=== PATIENT | female | born 1955 | race Caucasian/White ===

== ENCOUNTER 2017-09-30 16:21 | Emergency (ER) | payer BC ==
[2017-09-30 17:18] LABS: ABS Basophils 0 10^3/ul (0-0.2); ABS Eosinophils 0.1 10^3/ul (0-0.6); ABS Lymphocytes 1.8 10^3/ul (1.0-4.8); ABS Monocytes 0.6 10^3/ul (0-0.8); ABS Nucleated RBC 0 10^3/ul; Eosinophil % 1.7 % (0-6); Hematocrit 40 % (35-47); Hemoglobin 13.6 g/dl (12.0-16.0); Lymphocyte % 32.8 % (25-47); Mean Corpuscular HGB Conc 34 g/dl (31-36); Mean Corpuscular Hemoglobin 32 pg (27-31); Mean Corpuscular Volume 94 fL (80-97); Mean Platelet Volume 8 um3 (7.4-10.4); Nucleated Red Blood Cells % 0.1; Platelet Count 247 10^3/ul (150-450); Red Blood Count 4.27 10^6/ul (4.0-5.4); Red Cell Distribution Width 13 % (10.5-15); White Blood Count 5.5 10^3/ul (3.5-10.8)
[2017-09-30 17:33] LABS: EGFR Non-African American 60.2 (>60)
--- NOTE | 2017-09-30 17:48 | RAD ---
INDICATION: Chest pain COMPARISON: October 23, 2011 TECHNIQUE: PA and lateral dual-energy views were obtained. FINDINGS: Bones/Soft Tissues: There are no acute bony findings. Cardiomediastinal: The cardiomediastinal silhouette is normal. Lungs: There are no infiltrates. Pleura: There are no pleural effusions. Other: None IMPRESSION: NORMAL CHEST.
[2017-09-30 21:58] VITALS: BP 107/70
--- NOTE | 2017-09-30 22:11 | ED ---
uGero Mendes Stephanie, scribed for Levi Magallanes MD on 09/30/17 at 1735 . HPI Chest Pain - HPI Summary HPI Summary: The pt is a 61 y/o F presenting to the ED with c/o CP that began this morning at 08:00. The pt reports having upper back pain last night around 22:00. Symptoms include radiation of the CP to the neck, and L sided arm weakness. The pt denies nausea, SOB, diaphoresis and lightheadedness. - History of Current Complaint Chief Complaint: EDChestPainROMI Time Seen by Provider: 09/30/17 16:56 Hx Obtained From: Patient Onset/Duration: Started Days Ago - 1, Still Present Timing: Intermittent Current Severity: Mild Pain Intensity: 3 Pain Scale Used: 0-10 Numeric Chest Pain Location: Diffuse Chest Pain Radiates: Yes Chest Pain Radiates To:: Arm - L, Neck Aggravating Factor(s): Nothing Alleviating Factor(s): Nothing Associated Signs and Symptoms: Positive: Back Pain - upper. 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 motons neuroma removed- 1994 Infectious Disease History: No Infectious Disease History: Denies: Traveled Outside the [place] in Last 30 Days - Family History Known Family History: Negative: Cardiac Disease - Social History Occupation: Employed Full-time Lives: With Family Alcohol Use: None Substance Use Type: Reports: None Smoking Status (MU): Never Smoked Tobacco Review of Systems Negative: Fever, Skin Diaphoresis Positive: Chest Pain Negative: Shortness Of Breath Negative: Nausea Positive: Other - neck pain Neurological: Other - Negative: lightheadedness Positive: Weakness - L arm weakness All Other Systems Reviewed And Are Negative: Yes Physical Exam - Summary Physical Exam Summary: Appearance: The patient is well-nourished in no acute distress and in no acute pain. Skin: The skin is warm and dry and skin color reflects adequate perfusion. HEENT: The head is normocephalic and atraumatic. The pupils are equal and reactive. The conjunctivae are clear and without drainage. Nares are patent and without drainage. Mouth reveals moist mucous membranes and the throat is without erythema and exudate. The external ears are intact. The ear canals are patent and without drainage. The tympanic membranes are intact. Neck: the neck is supple with full range of motion and non-tender. There are no carotid bruits. There is no neck vein distension. Respiratory: Chest is non-tender. Lungs are clear to auscultation and breath sounds are symmetrical and equal. Cardiovascular: Heart is regular rate and rhythm. There is no murmur or rub auscultated. There is no peripheral edema and pulses are symmetrical and equal. Abdomen: The abdomen is soft and non-tender. There are normal bowel sounds heard in all four quadrants and there is no organomegaly palpated. Musculoskeletal: There is no back tenderness noted. Extremities are non-tender with full range of motion. There is good capillary refill. There is no peripheral edema or calf tenderness elicited. Neurological: Patient is alert and oriented to person, place and time. The patient has symmetrical motor strength in all four extremities. Cranial nerves are grossly intact. Deep tendon reflexes are symmetrical and equal in all four extremities. Psychiatric: The patient has an appropriate affect and does not exhibit any anxiety or depression Triage Information Reviewed: Yes Vital Signs On Initial Exam: Initial Vitals Temp Pulse Resp BP Pulse Ox 96.8 F 66 16 136/76 98 09/30/17 16:34 09/30/17 16:34 09/30/17 16:34 09/30/17 16:34 09/30/17 16:34 Vital Signs Reviewed: Yes Diagnostics - Vital Signs Vital Signs Temp Pulse Resp BP Pulse Ox 09/30/17 17:06 62 16 98 09/30/17 16:34 96.8 F 66 16 136/76 98 - Laboratory Lab Results: Lab Results 09/30/17 Range/Units 17:06 WBC 5.5 (3.5-10.8) 10^3/ul RBC 4.27 (4.0-5.4) 10^6/ul Hgb 13.6 (12.0-16.0) g/dl Hct 40 (35-47) % MCV 94 (80-97) fL MCH 32 H (27-31) pg MCHC 34 (31-36) g/dl RDW 13 (10.5-15) % Plt Count 247 (150-450) 10^3/ul MPV 8 (7.4-10.4) um3 Neut % (Auto) 53.8 (38-83) % Lymph % (Auto) 32.8 (25-47) % Karnes % (Auto) 11.0 H (0-7) % Eos % (Auto) 1.7 (0-6) % Baso % (Auto) 0.7 (0-2) % Absolute Neuts (auto) 3.0 (1.5-7.7) 10^3/ul Absolute Lymphs (auto) 1.8 (1.0-4.8) 10^3/ul Absolute Monos (auto) 0.6 (0-0.8) 10^3/ul Absolute Eos (auto) 0.1 (0-0.6) 10^3/ul Absolute Basos (auto) 0 (0-0.2) 10^3/ul Absolute Nucleated RBC 0 10^3/ul Nucleated RBC % 0.1 Result Diagrams: 09/30/17 17:06 09/30/17 17:06 Lab Statement: Any lab studies that have been ordered have been reviewed, and results considered in the medical decision making process. - Radiology CXR Xray Interpretation: No Acute Changes Radiology Interpretation Completed By: Radiologist - Normal chest. - EKG 16:44 Cardiac Rate: NL EKG Rhythm: Sinus Rhythm - 63 BPM EKG Interpretation: normal EKG Chest Pain Course/Dx - Course Course Of Treatment: Ms. Hodge presented with an atypical chest pain that has no exacerbating or relieving factors or associated symptoms. Her W/U here was negative and she was seen by Dr. Andrew. She will F/U for further evaluation. - Diagnoses Provider Diagnoses: Chest pain Discharge - Discharge Plan Condition: Stable Disposition: HOME Patient Education Materials: Chest Pain (ED) Referrals: Blaire Perera NP [Primary Care Provider] - Alexus Andrew MD [Medical Doctor] - 1 Week The documentation as recorded by the scribe, Guero,Gabi accurately reflects the service I personally performed and the decisions made by me, Levi Magallanes MD.
--- NOTE | 2017-10-01 05:10 | CONS ---
CC: [facility], Emergency Department * CARDIOLOGY CONSULTATION REPORT: DATE OF CONSULT: 09/30/17 REASON FOR CONSULTATION: Chest pain. CHIEF COMPLAINT: Chest and left shoulder pain. HISTORY OF PRESENT ILLNESS: Sarah Hodge is a 61-year-old woman with no prior cardiac history and has been healthy overall. The patient went to bed last night and noted some interscapular pain and discomfort lying on the right side which is the usual way she sleeps. She slept flat on her back; this morning noted some aching under the upper substernal area and left shoulder. She has been assisting her mother who had a hip fracture and they did some gardening yesterday, which she has not done in many months, but otherwise her meals and activity have been normal. Last night , she had a pretty benign meal in terms of reflux and a one glass of wine just not unusual, she has 1 cup of coffee in the morning. She denies any over-the- counter medications. She denies any recent illnesses or travel. PAST MEDICAL HISTORY: The patient has a past medical history of benign oral tumor requiring several surgeries. Anemia, 2011, with menopause (treated with progesterone). PAST SURGICAL HISTORY: 2013: Major oral reconstructive surgery, removal of benign tumor and reconstruction done with bone, tissue, and vasculature from the left femur and leg. MEDICATIONS: She is on no outpatient medications. ALLERGIES: She has no known drug allergies. FAMILY HISTORY: Significant that her mother has breast cancer, recently diagnosed. Her father young of esophageal cancer with a history of heavy smoking. 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 She has never smoked but did get exposure to passive smoking with both her parents. She drinks occasional alcohol. She lives with her significant other who has Parkinson's and currently is caring for her mother who had a hip fracture and recently diagnosed with breast cancer. REVIEW OF SYSTEMS: See history of present illness, but no recent fevers, chills , change in bowel or bladder habits, no change in appetite. No orthopnea or PND. Just the recent interscapular pain last night and then upper substernal radiating to left shoulder aching pain today with no associations. PHYSICAL EXAM: The patient is 5 feet 6 inches, weighs 140 pounds with a BMI of 22.6. Blood pressure 136/76, pulse of 66 and regular, temperature 96.8, and oxygen saturation on room air is 98%. General Appearance: Older middle-aged woman lying at 30 degrees in no acute distress. Psychologically, pleasant and cooperative. Neurologically, awake, alert, and oriented to person, place, and time. Cranial nerves II through XII intact; grossly normal sensory and motor function in the upper and lower extremities and normal gait. Skin: Warm, dry, age-appropriate changes, surgical scars well healed, no cyanosis, rashes, or other lesions. HEENT: Pupils are equal and round. Mucous membranes moist. Neck without thyromegaly or lymphadenopathy and no increased JVP appreciated, lying flat or at 30 degrees. Lungs are clear with good effort. No wheezing, rales, or rhonchi. No interscapular pain reproduced lying down with some mild palpation. Coronary: S1, S2 regular. Very soft flow murmur, little bit increased in expiration heard at Erb's point. Abdomen: Flat, active bowel sounds , soft. No epigastric discomfort. No hepatomegaly. No bruits. Strong femoral pulses. Free of bruits. The lower extremities are warm with palpable posterior tibial pulses bilaterally. DIAGNOSTIC STUDIES/LAB DATA: The patient's 12-lead ECG shows normal sinus rhythm at 63 beats per minute, QRS axis +45 with normal AV and IV conduction times and ST segments appear normal. There is one old EKG to compare this with from 2012 and it does not appear significantly changed. Her heart rate at that time was 85 beats per minute. Labs from [facility]: White count 5.5, hemoglobin 13.6, hematocrit 40 (was 44 in 2007 and she was anemic in 2012 at 27 and 28). Her differential shows mild increase in monocytes, 11 with a normal range of 0 to 7. Sodium 138, potassium 4.1, chloride 106, bicarb 26, BUN 20, creatinine 0.95, glucose 90, lactic acid 0.5. AST 14, ALT 10, troponin 0.00. Her most recent lipid panel was from 10/28/16 showing total cholesterol 240, triglycerides 71, HDL cholesterol 77, and LDL cholesterol calculated at 149. IMPRESSION: In summary, Sarah Hodge is a 61-year-old woman who is presenting with mid substernal chest pain radiating to the left shoulder that has been coming and going for about 20 hours with a reassuring EKG and troponin. I support Dr. Magallanes's approach of getting a second troponin in 3 hours and if this is normal, it puts her in a low risk category; she can be followed as an outpatient. She is a low risk patient to begin without significant atherosclerotic risk. I am not sure what the discomfort is, I think there is a differential of musculoskeletal, reflux, and possibly pericardial as the onset occurred lying down at night although there is no longer a positional and there has never been a pleuritic component. I will add a C-reactive protein and sed rate to the blood in the labs and also supporting this would be her mild increase in monocytes and she may have some low- grade inflammatory process ongoing. Additional recommendations will be made pending her clinical course and response of future labs. Thank you for allowing us to assist in this nice woman's care. [id number]/[facility] #: [id number] SHERMAN
== END 2017-09-30 21:57 | disposition home or self-care (01) ==
LOC: ED 16:21
DX: R07.9 Chest pain, unspecified (principal); M54.9 Dorsalgia, unspecified; R53.1 Weakness
CPT/HCPCS: 36415; 71046; 80053; 83605; 84484; 85025; 85652; 86140; 93005; 99282